=== PATIENT | female | born 1975 | race Caucasian/White ===

== ENCOUNTER → 2021-04-09 | Emergency (ER) | payer OTHER ==
[~2021-04-09] VITALS: Ht 154.9 cm; Wt 60.8 kg
[~2021-04-09] MED LIST: PEPCID; PEPCID40 MG PO; ZOFRAN4 MG PO
== END | disposition home or self-care (01) ==
LOC: ER 21:51
DX: K29.00 Acute gastritis without bleeding (principal)